=== PATIENT | female | born 1990 | race American Indian/Alaskan Native ===

== ENCOUNTER 2017-04-27 08:00 | Inpatient (IN) | payer SELFPAY ==
--- NOTE | 2017-04-26 09:52 | Anesthesia Consultation ---
Anesthesia Consult and Med Hx Date of service: 04/27/17 - Airway Anesthetic Teeth Evaluation: Good ROM Head & Neck: Adequate Mental/Hyoid Distance: Adequate Mallampati Class: Class II Intubation Access Assessment: Probably Good - Pulmonary Exam CTA: Yes - Cardiac Exam Cardiac Exam: RRR - Pre-Operative Health Status ASA Pre-Surgery Classification: ASA2 Proposed Anesthetic Plan: General - Pulmonary Hx Smoking: Yes - Central Nervous System Hx Psychiatric Problems: No - Other Systems Hx Alcohol Use: Yes (every other day) Hx Substance Use: Yes (marijuana daily) Hx Cancer: No
[2017-04-26 10:01] LABS: Basophils % (Auto) 0.6 % (0.0-1.8); Hematocrit 40.5 % (30.3-42.9); Hemoglobin 13.7 gm/dl (10.1-14.3); Mean Corpuscular HGB Conc 34 % (30-34); Mean Corpuscular Hemoglobin 31 pg (28-32); Mean Corpuscular Volume 90 fl (79-97); Platelet Count 235 K/mm3 (140-440); Red Blood Count 4.49 M/mm3 (3.65-5.03); White Blood Count 6.7 K/mm3 (4.5-11.0)
[~2017-04-27 08:00] MED LIST: LACTATED RINGERS 1,000 ML IV SCH; PEPCID PO NR; VERSED IV NR
[2017-04-27] MEDS ORDERED: MARCAINE-EPI 0.25%-1:200,000 INFILTRATI ONE (09:10)
[2017-04-27] MEDS ORDERED: MARCAINE-EPI/PF 0.5%-1:200,000 INFILTRATI ONE (09:11)
--- NOTE | 2017-04-27 09:36 | Short Stay Summary ---
Short Stay Documentation Date of service: 04/27/17 Narrative H&P: Pt is a 26yo BF G0 LMP 04/07/17 presents for surgical evaluation and treatment of a pelvic mass. CT Scan showed a 6.8 x 7.4 x 4.7cm right adnexal mass, CEA and CA125 were WNL, and thus she is scheduled for an Exploratory Laparotomy with a Right Ovarian Cystectomy possible Right Oophorectomy. - History Principal diagnosis: pelvic mass H&P: obtained from office Past Medical History: No medical history Past Surgical History: No surgical history Social history: no significant social history, single - Allergies and Medications Current Medications: Allergies No Known Allergies Allergy (Unverified 04/20/17 16:11) Home Medications Medication Instructions Recorded Confirmed Last Taken Type No Known Home Medications [No 04/20/17 04/20/17 Unknown History Reported Home Medications] Active Medications Lactated Ringer's (Lactated Ringers) 1,000 mls @ 100 mls/hr IV DIRECT ADY - Physical exam General appearance: no acute distress Integumentary: no rash HEENT: Atraumatic Lungs: Clear to auscultation Breasts: deferred Heart: Regular rate Gastrointestinal: normal Female Genitourinary: deferred Rectal Exam: deferred Extremities: no ischemia, No edema Neurological: Normal gait, Normal speech - Brief post op/procedure progress note Date of procedure: 04/27/17 Pre-op diagnosis: 1. Pelvic mass 2. Right adnexal mass Post-op diagnosis: same Procedure: 1. Exploratory laparotomy 2. Right Oophorectomy Anesthesia: GETA, other (Renetta block) Findings: A normal uterus with a large 7 x 8cm right solid mass encompassing the right ovary. Normal left ovary and normal tubes bilaterally. Surgeon: SIMÓN WARREN Estimated blood loss: minimal Pathology: list (right adnexal mass) Specimen disposition: to lab Condition: stable - Hospital course Hospital course: Unremarkable. - Disposition Condition at discharge: Good Disposition: DC-01 TO HOME OR SELFCARE - Discharge Diagnoses (1) Ovarian mass, right Status: Suspected Short Stay Discharge Plan Activity: no restrictions Diet: regular Wound: open to air, keep clean and dry Follow up with: PRIMARY CARE, [Primary Care Provider] - 7 Days SIMÓN WARREN MD [Staff Physician] - 14 Days Prescriptions: HYDROcodone/APAP 5-325 [[place] 5-325 mg TAB] 1 each PO Q6H PRN #30 tablet PRN Reason: Pain, Moderate (4-6) Ibuprofen [Motrin] 800 mg PO Q8HR PRN #30 tablet PRN Reason: Moder Pain Unrelieved By [place]
[2017-04-27] MEDS ORDERED: ZEMURON IV ONE (09:48)
[2017-04-27] MEDS ORDERED: DIPRIVAN 10 MG/ML IV ONE (09:48)
[2017-04-27] MEDS ORDERED: XYLOCAINE MPF 2% ONE ×4 (09:48→10:03)
[2017-04-27] MEDS ORDERED: PEPCID PO NR (10:00)
[2017-04-27] MEDS ORDERED: SUBLIMAZE IV NR (10:00)
[2017-04-27] MEDS ORDERED: VERSED IV NR (10:00)
[2017-04-27] MEDS ORDERED: ANCEF/STERILE WATER 2 GM/20 ML 2 GM/20 ML SYRINGE IV NR (10:00)
[2017-04-27] MEDS: VERSED IV PRN ×2 (10:03→10:12)
[2017-04-27] MEDS ORDERED: NACL 0.9% IR ONE (10:15)
[2017-04-27] MEDS ORDERED: DILAUDID ONE ×2 (11:04→12:19)
[2017-04-27] MEDS ORDERED: DECADRON ONE (11:05)
[2017-04-27] MEDS ORDERED: ZOFRAN ONE (11:05)
[2017-04-27] MEDS ORDERED: ROBINUL ONE (11:27)
[2017-04-27] MEDS ORDERED: NEOSTIGMINE ONE (11:27)
[2017-04-27] MEDS ORDERED: BREVIBLOC IV ONE (11:30)
[2017-04-27] MEDS ORDERED: LACTATED RINGERS 1,000 ML ONE (11:39)
--- NOTE | 2017-04-27 11:59 | Operative Report ---
Operative Report Operative Report: Date of procedure: 04/27/2017 Pre-operative diagnosis: 1. Pelvic mass 2. Right adnexal mass Post-operative diagnosis: Same with solid right ovarian mass Procedure name(s): 1. Exploratory laparotomy 2. Right oophorectomy Surgeon: Pradeep Kaur MD Deck Worker: Shahana Anesthesia: Renetta block followed by general endotracheal intubation by Dr. Sanchez EBL: Less than 10 mL's Findings: A normal uterus with a large 7 x 8 cm right solid ovarian mass encompassing the ovary. Normal left ovary and tubes bilaterally. Procedure: After the patient was correctly identified, she was prepped and draped in usual sterile fashion and placed in dorsolithotomy position. First the skin knife was used to make a transverse skin incision, extending the incision down to layer of the fascia which was nicked in the midline and extended laterally using Bovie cautery. The rectus muscles were dissected off the rectus fascia both superiorly and inferiorly, rectus bellies in the midline and the peritoneum was entered under direct visualization. Exploration of the pelvic organs found the uterus to be normal. The right adnexal mass was solid and encompassed the entire ovary. The left ovary was normal. Both fallopian tubes were normal. Next the right adnexal mass was raised through the incision, and since the mass could not be from the ovary the entire ovary was removed. The right oophorectomy was performed by using the Enseal to clamp, cauterize and cut across the utero-ovarian ligament, thus freeing the mass which was sent to pathology. Excellent hemostasis was assured, and the procedure was considered complete. The uterus was returned to its normal anatomical position, and the peritoneum reapproximated using 0 Vicryl suture in a running interlocking fashion, and the rectus muscles were loosely reapproximated using 0 Vicryl suture in a [id number] configuration. The fascia was then reapproximated using 0 Vicryl suture in a running interlocking fashion, and the skin edges reapproximated using 4-0 Vicryl suture in a subcuticular fashion. The patient tolerated the procedure well and was transported to recovery in stable condition.
[2017-04-27] MEDS ORDERED: TYLENOL PO PRN (12:00)
[2017-04-27] MEDS ORDERED: NARCAN 0.4 MG/1 ML IV PRN (12:00)
[2017-04-27] MEDS ORDERED: ZOFRAN IV PRN (12:00)
[2017-04-27] MEDS ORDERED: MILK OF MAGNESIA PO PRN (12:00)
[2017-04-27] MEDS: DILAUDID IV PRN ×4 (12:14→12:40)
[2017-04-27] MEDS ORDERED: TORADOL IV ONE (12:14)
--- NOTE | 2017-04-27 12:30 | Post Anesthesia Evaluation ---
- Post Anesthesia Evaluation Patient Participated: Yes Airway Patent: Yes Stable Respiratory Function: Yes Temp > 96.8F: Yes Pain Manageable: Yes Adequeate Hydration: Yes Anesthesia Complications: No Block Receding Appropriately: Not Applicable
--- NOTE | 2017-04-27 12:30 | Anesthesia Day of Surgery ---
Anesthesia Day of Surgery - Day of Surgery Patient Examined: Yes Patient H&P Reviewed: Yes Patient is NPO: Yes
[2017-04-27] MEDS ORDERED: TORADOL IV SCH (13:00)
[2017-04-27] MEDS: NORCO 5/325 PO PRN ×2 (15:55→23:55)
[2017-04-27] MEDS ORDERED: TORADOL IV PRN (16:27)
[2017-04-27] MEDS: D5LR 1,000 ML IV SCH ×2 (17:45→23:59)
[2017-04-27] MEDS: ANCEF/NS 1 GM/50 ML 1 GM/50 ML BAG IV SCH (17:49)
[2017-04-27] MEDS: COLACE PO SCH (21:57)
[2017-04-28] MEDS: ANCEF/NS 1 GM/50 ML 1 GM/50 ML BAG IV SCH (01:55)
[2017-04-28 05:34] LABS: Hematocrit 36.4 % (30.3-42.9); Hemoglobin 12.5 gm/dl (10.1-14.3)
[2017-04-28] MEDS: NORCO 5/325 PO PRN ×3 (05:47→17:59)
[2017-04-28] MEDS: COLACE PO SCH (11:05)
--- NOTE | 2017-04-28 11:05 | Progress Note ---
Subjective Date of service: 04/27/17 Principal diagnosis: pelvic mass Interval history: Patient states she has no residual numbness, denies pain or nausea, ambulating well, voiding. No anesthesia complications. Objective - Constitutional Vitals: Vital Signs - 12hr 04/27/17 04/28/17 04/28/17 23:55 00:00 04:00 Temperature 98.8 F 98.8 F Pulse Rate [ 68 84 Right] Respiratory 20 18 18 Rate Blood Pressure 107/61 117/71 [Right Arm] 04/28/17 04/28/17 04/28/17 05:47 07:30 08:00 Temperature 97.7 F Pulse Rate [ 70 80 Right] Respiratory 20 18 18 Rate Blood Pressure 98/68 [Right Arm] - Labs CBC & Chem 7: 04/28/17 04:52
[2017-04-28] MEDS: MOTRIN PO PRN ×2 (12:43→20:27)
[2017-04-28 18:12] VITALS: BP 110/66
== END 2017-04-28 20:30 | disposition home or self-care (01) | DRG 358 ==
LOC: 3A 08:07 → OB 12:11
PROVIDERS: ADMIT Obstetrics & Gynecology; ATTEND Obstetrics & Gynecology
PROC: 0WJJ0ZZ Inspection of Pelvic Cavity, Open Approach (ICD-10-PCS; principal; 2017-04-27)
PROC: 0UB00ZZ Excision of Right Ovary, Open Approach (ICD-10-PCS; 2017-04-27)
DX: R19.00 Intra-abdominal and pelvic swelling, mass and lump, unspecified site (principal); F17.210 Nicotine dependence, cigarettes, uncomplicated; F12.90 Cannabis use, unspecified, uncomplicated; Z72.89 Other problems related to lifestyle
CPT/HCPCS: 36415; 64450; 84703; 85014; 85018; 85025; 86850; 86900; 86901; 88305; 88307; J0690; J1100; J1170; J1885; J2250; J2405; J2704; J2710; J3010; J7120; J7121

== ENCOUNTER 2017-12-20 22:53 | Outpatient (CLI) | payer MEDICAID ==
[2017-12-20 23:12] VITALS: BP 117/58
[2017-12-20] MEDS ORDERED: LACTATED RINGERS 500 ML IV ONE (23:36)
[2017-12-21 00:59] LABS: Bacteria,Urine 3+ /HPF (Negative); Bilirubin,Urine NEG (Negative); Blood,Urine NEG (Negative); Color,Urine Yellow (Yellow); Mucus,Urine 2+ /HPF; Urobilinogen,Urine < 2.0 mg/dL (<2.0)
== END 2017-12-20 23:00 | disposition home or self-care (01) ==
LOC: TRG 22:53
PROVIDERS: ATTEND Obstetrics & Gynecology
DX: O47.02 False labor before 37 completed weeks of gestation, second trimester (principal); Z87.891 Personal history of nicotine dependence; Z3A.25 25 weeks gestation of pregnancy
CPT/HCPCS: 59025; 81001; J7120

== ENCOUNTER 2018-01-17 17:16 | Outpatient (CLI) | payer MEDICAID ==
[2018-01-17] MEDS ORDERED: LACTATED RINGERS 500 ML IV ONE (17:22)
[2018-01-17 17:41] VITALS: BP 117/61
[2018-01-17 18:27] LABS: Bilirubin,Urine NEG (Negative); Blood,Urine NEG (Negative); Color,Urine Yellow (Yellow); Mucus,Urine FEW /HPF; Protein,Urine <15 mg/dL mg/dL (Negative); Urobilinogen,Urine < 2.0 mg/dL (<2.0)
== END 2018-01-17 19:55 | disposition home or self-care (01) ==
LOC: TRG 17:16
PROVIDERS: ATTEND Obstetrics & Gynecology
DX: O47.03 False labor before 37 completed weeks of gestation, third trimester (principal); Z3A.28 28 weeks gestation of pregnancy
CPT/HCPCS: 59025; 81001; 96360; J7120

== ENCOUNTER 2018-01-29 12:59 | Outpatient (CLI) | payer MEDICAID ==
[2018-01-29 13:55] VITALS: BP 108/61
[2018-01-29] MEDS ORDERED: LACTATED RINGERS 500 ML IV ONE (14:00)
[2018-01-29 15:04] LABS: Basophils % (Auto) 0.2 % (0.0-1.8); Eosinophils # (Auto) 0.1 K/mm3 (0.0-0.4); Eosinophils % (Auto) 0.5 % (0.0-4.3); Hematocrit 35.3 % (30.3-42.9); Hemoglobin 12.3 gm/dl (10.1-14.3); Lymphocytes % (Auto) 19.5 % (13.4-35.0); Mean Corpuscular HGB Conc 35 % (30-34); Mean Corpuscular Hemoglobin 32 pg (28-32); Mean Corpuscular Volume 92 fl (79-97); Monocytes # (Auto) 0.8 K/mm3 (0.0-0.8); Monocytes % (Auto) 8.3 % (0.0-7.3); Platelet Count 267 K/mm3 (140-440); Red Blood Count 3.84 M/mm3 (3.65-5.03); Red Cell Distribution Width 14.1 % (13.2-15.2)
== END 2018-01-29 15:30 | disposition home or self-care (01) ==
LOC: TRG 12:59
PROVIDERS: ATTEND Obstetrics & Gynecology
DX: O47.03 False labor before 37 completed weeks of gestation, third trimester (principal); Z3A.31 31 weeks gestation of pregnancy
CPT/HCPCS: 36415; 85025

== ENCOUNTER 2018-03-23 06:11 | Inpatient (IN) | payer MEDICAID ==
[2018-03-23] MEDS ORDERED: LACTATED RINGERS 1,000 ML ONE ×2 (06:49→07:36)
--- NOTE | 2018-03-23 07:19 | Anesthesia Consultation ---
Anesthesia Consult and Med Hx Date of service: 03/23/18 - Airway Anesthetic Teeth Evaluation: Good ROM Head & Neck: Adequate Mental/Hyoid Distance: Adequate Mallampati Class: Class III Intubation Access Assessment: Possibly Difficult - Pre-Operative Health Status ASA Pre-Surgery Classification: ASA3 Proposed Anesthetic Plan: Epidural, Spinal - Pulmonary Hx Smoking: Yes Hx Asthma: No COPD: No - Cardiovascular System Hx Hypertension: No - Central Nervous System Hx Seizures: No Hx Psychiatric Problems: No - Endocrine Hx Renal Disease: No Hx End Stage Renal Disease: No Hx Hypothyroidism: No Hx Hyperthyroidism: No - Hematic Hx Anemia: Yes Hx Sickle Cell Disease: No - Other Systems Hx Alcohol Use: No Hx Substance Use: Yes (marijuana daily) Hx Cancer: No Hx Obesity: Yes
--- NOTE | 2018-03-23 07:20 | Anesthesia Day of Surgery ---
Anesthesia Day of Surgery - Day of Surgery Patient Examined: Yes Patient H&P Reviewed: Yes Patient is NPO: Yes
[2018-03-23] MEDS ORDERED: PHENERGAN PR PRN (07:30)
[2018-03-23] MEDS ORDERED: NARCAN 0.4 MG/1 ML IV PRN ×2 (07:30→12:34)
[2018-03-23] MEDS ORDERED: PHENERGAN PO PRN (07:30)
[2018-03-23] MEDS ORDERED: ZOFRAN IV PRN (07:30)
[2018-03-23] MEDS ORDERED: DILAUDID IV PRN (07:30)
[2018-03-23] MEDS ORDERED: REGLAN ONE ×2 (07:39→07:46)
[2018-03-23] MEDS ORDERED: BICITRA ONE (07:39)
[2018-03-23] MEDS ORDERED: PITOCin/NS 20 UNIT/1000ML DRIP 20,000 MILLIUNITS/1,000 ML BAG IV ONE (07:39)
[2018-03-23] MEDS ORDERED: PEPCID IV ONE (07:40)
[2018-03-23] MEDS ORDERED: SODIUM CHLORIDE FLUSH SYRINGE 10 ML IV PRN (08:00)
--- NOTE | 2018-03-23 08:11 | History and Physical Report ---
History of Present Illness Date of examination: 03/23/18 Date of admission: 03/23/18 06:11 Chief complaint: Here for a C Section History of present illness: Pt is a 27yo BF EDC 03/29/18; EGA 39 1/7 weeks presents for a Primary C Section because she reported she had previous uterine surgery - which upon closer evaluation she had an "Exploratory Laparotomy with Right Oophorectomy", but pt requests to proceed with the scheduled C Section. She received care at [facility] since 12 weeks and course has been unremarkable. records are available and GBS is Positive. Past History Past Medical History: no pertinent history Past Surgical History: other (exploratory laparotomy with right oophorectomy) Family/Genetic History: none Social history: no significant social history, single - Obstetrical History Expected Date of Delivery: 03/29/18 Actual Gestation: 39 Week(s) 1 Day(s) : 1 Medications and Allergies Allergies Allergy/AdvReac Type Severity Reaction Status Date / Time No Known Allergies Allergy Verified 04/27/17 10:32 Home Medications Medication Instructions Recorded Confirmed Last Taken Type HYDROcodone/APAP 5-325 [[place] 1 each PO Q6H PRN #30 tablet 04/28/17 Unknown Rx 5-325 mg TAB] Ibuprofen [Motrin] 800 mg PO Q8HR PRN #30 tablet 04/28/17 Unknown Rx Active Meds: Active Medications Diphenhydramine HCl (Benadryl) 12.5 mg IV Q2H PRN PRN Reason: Itching Hydromorphone HCl (Dilaudid) 0.5 mg IV Q5M PRN PRN Reason: Breakthrough Pain Stop: 03/23/18 15:00 Ketorolac Tromethamine (Toradol) 30 mg IV Q6H PRN PRN Reason: Pain, Moderate (4-6) Stop: 03/28/18 07:29 Naloxone HCl (Narcan 0.4 Mg/1 Ml) 0.2 mg IV Q2MIN PRN PRN Reason: Res Rate </= 8 or 02 SAT < 92% Ondansetron HCl (Zofran) 4 mg IV Q8H PRN PRN Reason: Nausea And Vomiting Promethazine HCl (Phenergan) 25 mg PO Q6H PRN PRN Reason: Nausea And Vomiting Promethazine HCl (Phenergan) 25 mg SC Q6H PRN PRN Reason: Nausea And Vomiting Sodium Chloride (Sodium Chloride Flush Syringe 10 Ml) 10 ml IV PRN PRN PRN Reason: flush Review of Systems All systems: negative - Physical Exam Breasts: Positive: deferred Cardiovascular: Regular rate Lungs: Positive: Clear to auscultation Abdomen: Positive: normal appearance Genitourinary (Female): Positive: normal external genitalia Uterus: Positive: enlarged Extremities: Positive: normal - Obstetrical FHR: category 1 Uterine Contraction Monitor Mode: External Uterine Contraction Pattern: Regular Uterine Tone Measurement Phase: Contraction Uterine Contraction Intensity: Mild Results Result Diagrams: 03/23/18 06:43 All other labs normal. Assessment and Plan - Patient Problems (1) 39 weeks gestation of Onset Date: 03/23/18 Current Visit: Yes Status: Acute Plan to address problem: A: IUP @ 39 1/7 weeks Previous uterine surgery P: Admit to L&D for a Primary C Section (2) Previous operation to uterus affecting current Onset Date: 03/23/18 Current Visit: Yes Status: Acute
[2018-03-23] MEDS ORDERED: BICITRA PO NR (08:30)
[2018-03-23] MEDS ORDERED: REGLAN IV NR (08:30)
[2018-03-23] MEDS ORDERED: PEPCID IV NR (08:30)
[2018-03-23] MEDS ORDERED: ANCEF/STERILE WATER 2 GM/20 ML 2 GM/20 ML SYRINGE IV NR (08:30)
[2018-03-23 08:41] LABS: Hematocrit 39.7 % (30.3-42.9); Hemoglobin 13.2 gm/dl (10.1-14.3); Mean Corpuscular HGB Conc 33 % (30-34); Mean Corpuscular Hemoglobin 31 pg (28-32); Mean Corpuscular Volume 92 fl (79-97); Platelet Count 271 K/mm3 (140-440); Red Blood Count 4.34 M/mm3 (3.65-5.03); Red Cell Distribution Width 14.6 % (13.2-15.2)
[2018-03-23] MEDS ORDERED: LACTATED RINGERS 1,000 ML IV SCH (09:00)
[2018-03-23] MEDS ORDERED: PITOCin/NS 20 UNIT/1000ML DRIP 20 UNITS/1,000 ML BAG IV SCH ×2 (09:00→13:00)
[2018-03-23] MEDS ORDERED: NEO SYNEPHRINE/NS Syringe(OR USE) IV ONE ×2 (11:31→11:53)
[2018-03-23] MEDS ORDERED: SUBLIMAZE ONE (12:00)
[2018-03-23] MEDS ORDERED: ZOFRAN ONE (12:01)
[2018-03-23] MEDS ORDERED: VERSED ONE (12:02)
[2018-03-23] MEDS ORDERED: MORPHINE ONE (12:21)
--- NOTE | 2018-03-23 12:30 | Operative Report ---
Operative Report Operative Report: Date of procedure: 03/23/2018 Pre-operative diagnosis: 1. Intrauterine at 39-1/7 weeks 2. Previous uterine surgery Post-operative diagnosis: Same Procedure name(s): Primary low transverse section Surgeon: Pradeep Kaur MD Business Support Specialist: None Anesthesia: Epidural anesthesia by Dr. Mustafa EBL: 600 mls Findings: A 4248 g male infant Apgars 8 at 1 minute 9 at 5 minutes. Clear amniotic fluid. Normal uterus. Normal tubes and normal left ovary. Absent right ovary. Procedure: After the patient was prepped and draped in usual sterile fashion, and after satisfactory level of epidural anesthesia was obtained, the skin knife was used to make a transverse skin incision. The incision was excised down to layer of the fascia, which was nicked in the midline and extended laterally using the Bovie cautery. The rectus muscles were dissected off the rectus fascia both superiorly and inferiorly. The rectus bellies in the midline, and the peritoneum was entered under direct visualization. The peritoneal incision was extended superiorly and inferiorly. A bladder flap was created and the bladder blade was then placed. The uterus was scored in a curvilinear linear fashion, entered in the midline revealing clear amniotic fluid. The 's head was delivered onto the surgical field, and the oropharynx and nasopharynx were bulb suctioned. The rest of the 's body was delivered, cord was doubly clamped and cut and the was handed to the waiting respiratory team. The placenta was manually removed from the uterus, and the uterus removed from its normal anatomical position. After gentle uterine lavage, the incision was inspected and found to be without extensions. It was then closed in 2 layers using 0 Vicryl suture in a running interlocking fashion, the second layer imbricating the first. After good hemostasis was achieved, copious amounts or irrigation was performed, and the gutters were suctioned free of blood and blood clots. Tisseel sealant was sprayed across the uterine incision. The uterus was then returned to its normal anatomical position, and after excellent hemostasis assured, the peritoneum was re- approximated using 3-0 Vicryl suture in a running interlocking fashion, and then the rectus muscles were re-approximated using 3-0 Vicryl suture in a figure -of-eight configuration. The fascia was then re-approximated using 0 Vicryl suture in running interlocking fashion. The subcutaneous layer was made hemostatic using Bovie cautery, the Tisseel sealant was sprayed across the fascial incision and the skin edges re-approximated using 4-0 Vicryl suture in a sub-cuticular fashion. Patient tolerated the procedure well was transported to recovery in stable condition.
[2018-03-23] MEDS ORDERED: TYLENOL PO PRN (12:34)
[2018-03-23] MEDS ORDERED: TUCKS PAD TP PRN (12:34)
[2018-03-23] MEDS ORDERED: LANSINOH TP PRN (12:34)
[2018-03-23] MEDS ORDERED: MILK OF MAGNESIA PO PRN (12:34)
[2018-03-23] MEDS ORDERED: SENOKOT PO PRN (12:34)
[2018-03-23] MEDS ORDERED: MYLICON PO PRN (12:34)
[2018-03-23] MEDS ORDERED: SODIUM CHLORIDE FLUSH SYRINGE 10 ML IV SCH (13:00)
[2018-03-23] MEDS ORDERED: ANCEF/NS 1 GM/50 ML 1 GM/50 ML BAG IV SCH (13:00)
[2018-03-23] MEDS ORDERED: D5LR 1,000 ML IV SCH (13:00)
[2018-03-23] MEDS: ceFAZolin 1 GM in NACL 0.9% 20 ML IV SCH (16:15)
[2018-03-23] MEDS: BENADRYL IV PRN ×2 (17:04→20:01)
[2018-03-23] MEDS: TORADOL IV PRN (22:53)
[2018-03-24] MEDS: ceFAZolin 1 GM in NACL 0.9% 20 ML IV SCH (00:10)
[2018-03-24 00:40] LABS: Hematocrit 34.1 % (30.3-42.9); Hemoglobin 11.7 gm/dl (10.1-14.3)
[2018-03-24] MEDS: PERCOCET 5/325 PO PRN ×3 (03:11→17:23)
[2018-03-24] MEDS ORDERED: BOOSTRIX IM ONE (06:00)
[2018-03-24] MEDS: PRENATAL VITAMIN PO SCH (08:36)
[2018-03-24] MEDS: FEOSOL PO SCH (08:36)
[2018-03-24] MEDS: TORADOL IV PRN (08:37)
--- NOTE | 2018-03-24 09:44 | Progress Note ---
Subjective Date of service: 03/24/18 Interval history: Ms Sena underwent section on 03/23/2018 under regional anesthesia. At some point during the night she developed a sharp neck pain. The pain has been intermittent in nature but does not have any discernible positional component. I spoke with the patient about spinal headache and its cause and treatment. Due to the lack of classical symptoms, she has declined immediate blood patch. We will reevaluate her condition in the AM. Objective - Constitutional Vitals: Vital Signs - 12hr 03/23/18 03/24/18 03/24/18 22:53 00:58 03:05 Temperature 98.6 F 98.6 F Pulse Rate 74 80 Respiratory 20 20 18 Rate Blood Pressure 114/68 122/76 [Right] 03/24/18 03/24/18 03:11 08:37 Temperature Pulse Rate Respiratory 18 20 Rate Blood Pressure [Right] - Labs CBC & Chem 7: 03/24/18 00:16
--- NOTE | 2018-03-24 11:08 | Progress Note ---
Assessment and Plan - Patient Problems (1) 39 weeks gestation of Onset Date: 03/23/18 Current Visit: Yes Status: Resolved (2) Previous operation to uterus affecting current Onset Date: 03/23/18 Current Visit: Yes Status: Resolved (3) Status post Onset Date: 03/24/18 Current Visit: Yes Status: Resolved Plan to address problem: A: S/P C Section - POD #1 Doing well Neck pains P: Continue RPOC Anesthesia to reassess neck pains tomorrow. Anticipate discharge to home in 24-48hrs Subjective - Subjective Date of service: 03/24/18 Principal diagnosis: s/p C Section - POD #1 Interval history: Pt is feeling well without complaints. Bleeding improved. She is tolerating a reg diet without nausea or vomiting. Pt complains of occasional neck pains - evaluated by anesthesia. Patient reports: appetite normal, voiding normally, pain well controlled, flatus , ambulating normally, no dizzy ambulation, no nauseated [place]: doing well, bottle feeding Objective - Vital Signs Latest vital signs: Vital Signs Temp Pulse Resp BP BP Pulse Ox 03/24/18 08:37 20 03/24/18 08:00 98.7 F 69 18 112/78 03/24/18 03:11 18 03/24/18 03:05 98.6 F 80 18 122/76 03/24/18 00:58 98.6 F 74 20 114/68 03/23/18 22:53 20 03/23/18 20:10 98.5 F 85 18 115/66 03/23/18 14:18 98.6 F 61 20 118/70 03/23/18 14:01 16 03/23/18 13:35 97.6 F 66 16 126/73 99 03/23/18 13:30 68 20 127/74 98 03/23/18 13:25 69 12 126/75 96 03/23/18 13:20 70 12 124/69 98 03/23/18 13:15 62 20 123/72 03/23/18 13:10 69 17 119/77 96 03/23/18 13:05 66 10 L 124/69 96 03/23/18 13:00 75 18 127/66 03/23/18 12:56 72 16 114/44 100 03/23/18 12:50 68 21 126/63 100 03/23/18 12:44 81 21 128/70 99 03/23/18 12:38 77 23 119/69 99 03/23/18 12:32 99 03/23/18 12:31 97.6 F 18 Intake and Output 03/23/18 03/24/18 03/24/18 22:59 06:59 14:59 Intake Total 600 300 Output Total 900 1700 Balance -900 -1100 300 Intake: Intake, Free Water 600 300 Output: Urine 900 1700 Indwelling Catheter 900 1700 Other: Total, Output Amount 900 800 - Exam Breasts: Present: deferred Cardiovascular: Present: Regular rate Lungs: Present: Clear to auscultation Abdomen: Present: normal appearance, soft Uterus: Present: normal, firm, fundal height below umbilicus Extremities: Present: normal Incision: Present: normal, dry, intact, dressed - Labs Labs: Laboratory Tests 03/23/18 03/23/18 03/24/18 06:43 06:43 00:16 WBC 8.7 RBC 4.34 Hgb 13.2 11.7 Hct 39.7 34.1 MCV 92 MCH 31 MCHC 33 RDW 14.6 Plt Count 271 Blood Type B POSITIVE Antibody Screen Negative
[2018-03-24] MEDS ORDERED: M-M-R II VACCINE SUB-Q ONE (12:36)
[2018-03-24] MEDS: FLEXERIL PO SCH ×2 (17:20→22:43)
[2018-03-24] MEDS: MOTRIN PO PRN ×2 (17:21→23:28)
[2018-03-24] MEDS: NORCO 5/325 PO PRN (23:28)
[2018-03-25] MEDS: MOTRIN PO PRN ×2 (05:30→13:57)
[2018-03-25] MEDS: NORCO 5/325 PO PRN (05:30)
[2018-03-25] MEDS: PERCOCET 5/325 PO PRN (08:00)
[2018-03-25 09:16] VITALS: BP 131/61
[2018-03-25] MEDS: PRENATAL VITAMIN PO SCH (09:49)
[2018-03-25] MEDS: FEOSOL PO SCH (09:49)
--- NOTE | 2018-03-25 12:20 | Progress Note ---
Assessment and Plan - Patient Problems (1) 39 weeks gestation of Onset Date: 03/23/18 Current Visit: Yes Status: Resolved (2) Previous operation to uterus affecting current Onset Date: 03/23/18 Current Visit: Yes Status: Resolved (3) Status post Onset Date: 03/24/18 Current Visit: Yes Status: Resolved Plan to address problem: A: S/P C Section - POD #2 Doing well Neck pains P: May go home today if cleared by anesthesia. Subjective - Subjective Date of service: 03/25/18 Principal diagnosis: s/p C Section - POD #2 Interval history: Pt is feeling well. She is tolerating a reg diet without nausea or vomiting, ambulating and voiding without difficulty. Pt still complains of occasional neck pains - improved with pain meds. Wants to go home. Patient reports: appetite normal, voiding normally, pain well controlled, flatus , ambulating normally, no dizzy ambulation, no nauseated : doing well, bottle feeding Objective - Vital Signs Latest vital signs: Vital Signs Temp Pulse Resp BP BP Pulse Ox 03/25/18 07:42 98.2 F 82 18 131/61 100 03/25/18 00:00 98.2 F 79 18 120/72 03/24/18 17:23 20 03/24/18 17:21 20 Intake and Output 03/24/18 03/25/18 03/25/18 22:59 06:59 14:59 Intake Total 240 240 Balance 240 240 Intake: Intake, Free Water 240 240 Other: # Voids Void 2 1 - Exam Breasts: Present: deferred Cardiovascular: Present: Regular rate Lungs: Present: Clear to auscultation Abdomen: Present: normal appearance, soft Uterus: Present: normal, firm, fundal height below umbilicus Extremities: Present: normal Incision: Present: normal, dry, intact
--- NOTE | 2018-03-25 12:55 | Discharge Summary ---
Providers - Providers Date of Admission: 03/23/18 06:11 Date of discharge: 03/25/18 Attending physician: SIMÓN WARREN Primary care physician: SIMÓN WARREN Hospitalization Reason for admission: section, IUP at term Delivery: Procedure: section, primary low transverse Episiotomy: none Laceration: none Incision: normal Other procedures: none complications: other (neck pains) Discharge diagnosis: IUP at term delivered [place] baby: male Hospital course: Pt is a 27yo BF EDC 03/29/18; EGA 39 10/15 weeks who presented for a Primary C Section because she reported she had previous uterine surgery. She tolerated the C Section, and by POD #2 was tolerating a reg diet without nausea or vomiting, ambulating and voiding without difficulty. She however had occasional neck pains which was evaluated by Anesthesia and thought to be an atypical presentation for a spinal headache - pt was considering a blood patch. Otherwise pains improved with Flexeril . She will therefore be discharged to home after further evaluation by Anesthesia. Condition at discharge: Good Disposition: DC-01 TO HOME OR SELFCARE - Discharge Diagnoses (1) 39 weeks gestation of Status: Resolved (2) Previous operation to uterus affecting current Status: Resolved (3) Status post Status: Resolved Plan - Discharge Medications Prescriptions: Cyclobenzaprine [Flexeril 10 MG TAB] 10 mg PO TID #30 tablet Ferrous Sulfate [Feosol 325 MG tab] 325 mg PO QDAY #60 tablet HYDROcodone/APAP 5-325 [[place] 5-325 mg TAB] 1 each PO Q4H PRN #30 tablet PRN Reason: Pain, Moderate (4-6) Ibuprofen [Motrin 800 MG tab] 800 mg PO Q6H PRN #30 tablet PRN Reason: Pain, Mild (1-3) Vit-Fe Fumar-FA [ Vitamin] 1 each PO QDAY #30 tablet - Provider Discharge Summary Activity: routine, no sex for 6 weeks, no heavy lifting 4 weeks, no strenuous exercise Diet: routine Instructions: routine Additional instructions: [] Smoking cessation referral if applicable(refer to patient education folder for contact #) [] Refer to [facility]'s [facility] Booklet Call your doctor immediately for: * Fever > 100.5 * Heavy vaginal bleeding ( >1 pad per hour) * Severe persistent headache * Shortness of breath * Reddened, hot, painful area to leg or breast * Drainage or odor from incision. * Keep incision clean and dry at all times and follow doctor's instructions regarding bathing/showering - Follow up plan Follow up: SIMÓN WARREN MD [Primary Care Provider] - 7 Days LEOBARDO BETTENCOURT NP [Referring] - 7 Days
[2018-03-25] MEDS: FLEXERIL PO SCH (13:59)
== END 2018-03-25 15:15 | disposition home or self-care (01) | DRG 766 ==
LOC: APU 06:11 → LD 06:14 → OB 13:46
PROVIDERS: ADMIT Obstetrics & Gynecology; ATTEND Obstetrics & Gynecology
PROC: 10D00Z1 Extraction of Products of Conception, Low, Open Approach (ICD-10-PCS; principal; 2018-03-23)
PROC: 3E0234Z Introduction of Serum, Toxoid and Vaccine into Muscle, Percutaneous Approach (ICD-10-PCS; 2018-03-23)
DX: O99.824 Streptococcus B carrier state complicating childbirth (principal); O99.324 Drug use complicating childbirth; Z3A.39 39 weeks gestation of pregnancy; Z37.0 Single live birth; O99.214 Obesity complicating childbirth; E66.9 Obesity, unspecified; F12.90 Cannabis use, unspecified, uncomplicated; O34.29 Maternal care due to uterine scar from other previous surgery; O99.02 Anemia complicating childbirth; D64.9 Anemia, unspecified; Z23 Encounter for immunization; Z3A.00 Weeks of gestation of pregnancy not specified; Z90.721 Acquired absence of ovaries, unilateral; Z68.37 Body mass index [BMI] 37.0-37.9, adult; M54.2 Cervicalgia; O90.89 Other complications of the puerperium, not elsewhere classified
CPT/HCPCS: 36415; 85014; 85018; 85027; 86850; 86900; 86901; C9250; J0690; J1170; J1200; J1885; J2250; J2270; J2370; J2405; J2590; J2765; J3010; J7120; J7121